=== PATIENT | male | born 1950 | race Caucasian/White ===

== ENCOUNTER 2019-04-30 23:25 | Inpatient (IN) | payer OTHER ==
[~2019-04-30] VITALS: Ht 180.3 cm; Wt 87.5 kg
[~2019-04-30 23:25] MED LIST: ATENOLOL25 MG PO; COU5 PO; GLIPIZIDE2.5 M1; LANOXIN0.125 MG PO; LASIX40 MG PO; NEU100; TRAMADOL HCL50 MG
[2019-04-30 23:28] VITALS: Ht 180.3 cm; Wt 87.5 kg
[2019-05-01 01:18] LABS: BASOPHIL % 0.5 % (0-2); PLATELET COUNT 205 x10^3mcL (130-400)
[2019-05-01 01:19] LABS: RED CELL DISTRIBUTION WIDTH 15.4 % (11.5-14.5)
[2019-05-01 01:39] LABS: CALCIUM 8.8 mg/dL (8.5-10.1); CREATININE SERUM 1.3 mg/dL (0.7-1.3); POTASSIUM SERUM 4.2 mmol/L (3.5-5.1)
[2019-05-01 01:44] LABS: BILIRUBIN TOTAL 0.6 mg/dL (0.20-1.00)
[2019-05-01 01:59] LABS: ALBUMIN 3.2 g/dL (3.4-5.0)
--- NOTE | 2019-05-01 02:10 | NUR ---
PT PRESENTS TO ED WITH C/O CHEST PAIN THAT RADIATES TO L SHOULDER AND DOWN L ARM. PT STATES TAHT IT BEGAN WEDNESDAY HOWEVER HE THOUGHT IT WOULD GO AWAY, SO PT DID NOT SEEK CARE. PT STATES THAT IT KEPT COMING BACK AND TODAY IT IS WORSE. PT STATES THAT THE PAIN IS SHARP AND HAS TENDERNESS TO PALPATION OF L SHOLDER . PT DENIES ANY NUMBNESS/ TINGLING OR RADIATING ARM PAIN AT THIS TIME. PT STILL HAS THE PAIN EVEN IF YOU ARE NOT TOUCHING HIS CHEST. 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 MD C[place] AT BEDSIDE FOR MSE. PT CONNECTED TO FULL CM AND PULSE OX MONITORS. FAMILY AT BEDSIDE
--- NOTE | 2019-05-01 07:10 | NUR ---
REPORT GIVEN TO ELAINE Haas RN. ALL QUESTIONS AND CONCERNS ADDRESSED AT THIS TIME
--- NOTE | 2019-05-01 08:00 | NUR ---
REPORT GIVEN TO SHANNEN CHOPRA RESUMING CARE OF PT IN TELE FLOOR
--- NOTE | 2019-05-01 09:10 | NUR ---
PT OOB AMBULATORY TO BATHROOM. AAOX4 NO DISTRESS WITH STEADY GAIT
--- NOTE | 2019-05-01 09:25 | NUR ---
RECEIVED PT FROM ER. STABLE. ADMISSION HISTORY AND ASSESSMENT DONE. DENIES ANY PAIN THIS TIME. PT SAID HE HAS MILD PAIN IN HIS LUQ WHEN HE COUGH. OCCASIONAL DRY COUGH NOTED. SAFTEY PRECAUTIONS ARE IN PLACE. WILL MONITOR.
[2019-05-01 11:03] VITALS: BP 140/79
[2019-05-01 12:03] VITALS: BP 147/78
--- NOTE | 2019-05-01 13:00 | NUR ---
PT RESTING IN BED COMFORTABLY, STABLE. DENIES CHEST PAIN THIS TIME. HAD LUNCH. TROP X2 IS NEGATIVE. SR WITH DEPRESSED T.
[2019-05-01 16:35] VITALS: BP 145/75
--- NOTE | 2019-05-01 18:30 | NUR ---
TROP X3 NEGATIVE, PT IS STABLE. DENIES ANY CHEST PAIN. TRY TO CALL TO INFORM, CALLED AND SAID PT IS STABLE TO GO HOME AND RECEIVED T.O FOR DC PT HOME. CHARGE NURSE AWARE.
--- NOTE | 2019-05-01 19:00 | NUR ---
PT IS STABLE. DENIES ANY CHEST PAIN. GAVE REPORT TO FADIA FOR DISCHARGE PT.
[2019-05-01 20:10] VITALS: BP 145/75
--- NOTE | 2019-05-01 20:36 | NUR ---
PT GIVEN D/C PACKET, FAMILY MEMBERS BY BEDSIDE. DISCUSSED CURRENT STAY, INCLUDING MEDS GIVEN, PROCEDURES DONE, LAB RESULTS, AND TEACHINGS RE: CHEST PAIN, DIET, EXERCISE. PT AND FAMILY MEMBERS VERBALIZED UNDERSTANDING. ALL FORMS SIGNED/DATED. IV REMOVED FROM RH 20G, CATH TIP INTACT, SITE NO S/S INFECTION OR BLEEDING. TELE # 30 REMOVED AND RETURNED TO TELE STATION. ALL ID BANDS REMOVED. PT REMAINS A/A/O X 4, CALM, COOPERATIVE. NO ACUTE RESPIRATORY DISTRESS, PAIN, OR DISCOMFORT NOTED. PT WALKED DOWN TO LOBBY, ACCOMPANIED BY CUSTOMER INSIGHT ANALYST AND FAMILY MEMBERS. NO GAIT OR BALANCE IMPAIRMENT NOTED.
== END 2019-05-01 20:37 | disposition home or self-care (01) | DRG 313 ==
LOC: ED 23:25 → DU 05-01 05:38
PROVIDERS: ADMIT Internal Medicine Nephrology
DX: R07.9 Chest pain, unspecified (principal); E11.42 Type 2 diabetes mellitus with diabetic polyneuropathy; I10 Essential (primary) hypertension; Z79.82 Long term (current) use of aspirin; Z79.01 Long term (current) use of anticoagulants; Z79.84 Long term (current) use of oral hypoglycemic drugs; Z95.2 Presence of prosthetic heart valve; Z86.73 Personal history of transient ischemic attack (TIA), and cerebral infarction without residual deficits; Z68.27 Body mass index [BMI] 27.0-27.9, adult
CPT/HCPCS: 82962; G0378; J1815; J3010